=== PATIENT | female | born 1960 | race Caucasian/White ===

== ENCOUNTER 2022-11-21 17:57 | Emergency (ER) | payer MEDICAID, OTHER ==
[~2022-11-21] VITALS: Ht 160 cm; Wt 86.4 kg
[2022-11-21 18:53] LABS: Basophils # (auto) 0.1 10 ^3/uL (0-0.2); Eosinophils # (auto) 0.1 10 ^3/uL (0-0.8); Eosinophils % (auto) 1.6 % (0.0-7.0); Hematocrit 37.5 % (36.0-46.0); Hemoglobin 12.6 g/dL (12.2-16.2); Lymphocytes # (auto) 2.5 10 ^3/uL (0.4-5.4); Mean Corpuscular Hemoglobin 30.1 pg (28.0-32.0); Mean Corpuscular Hgb Conc. 33.6 g/dL (32.0-36.0); Mean Corpuscular Volume 89.6 fL (80.0-100.0); Monocytes # (auto) 0.5 10 ^3/uL (0-1.3); Monocytes % (auto) 7.1 % (0.0-12.0); Neutrophils # (auto) 4.1 10 ^3/uL (1.6-8.6); Neutrophils % (auto) 56.3 % (37.0-80.0); Nucleated Red Blood Cells % 0.1 %; Red Blood Cells 4.18 10^6/uL (4.0-5.20); Red Cell Distribution Width 12.3 % (11.8-14.3); White Blood Cell 7.3 10^3/uL (4.4-10.8)
[2022-11-21 19:11] LABS: Alanine Aminotransferase 13 U/L (7-40); Albumin 4.6 g/dL (3.2-4.8); Alkaline Phosphatase 83 U/L (46-116); Anion Gap 9 (5-15); Aspartate Aminotransferase 21 U/L (13-40); BUN/Creatinine Ratio 18.5 (10.0-20.0); Bilirubin, Total 0.4 mg/dL (0.2-1.0); Blood Urea Nitrogen 20 mg/dL (9-23); Calcium 9.5 mg/dL (8.7-10.4); Carbon Dioxide 27 mmol/L (20-30); Chloride 105 mmol/L (98-107); Glucose 128 mg/dL (74-106); Potassium 3.9 mmol/L (3.5-5.1); Sodium 141 mmol/L (136-145); Total Protein 7.3 g/dL (5.7-8.2)
[2022-11-22 00:36] VITALS: BP 114/69; PULSE 86; RESP 20; O2SAT 97
== END 2022-11-22 00:39 | disposition home or self-care (01) ==
LOC: ER 17:57 → EDBD 17:57 → ER 11-22 00:39
DX: R07.89 Other chest pain (principal); I10 Essential (primary) hypertension; K21.9 Gastro-esophageal reflux disease without esophagitis; Z88.8 Allergy status to other drugs, medicaments and biological substances; Z88.2 Allergy status to sulfonamides
CPT/HCPCS: 36415; 71045; 80053; 84484; 85025; 93005

== ENCOUNTER 2024-08-25 05:28 | Inpatient (IN) | payer MEDICAID ==
[~2024-08-25] VITALS: Ht 162.6 cm; Wt 75.3 kg
[2024-08-25 06:11] LABS: Hematocrit 33.5 % (36.0-46.0); Hemoglobin 11.5 g/dL (12.2-16.2); Mean Corpuscular Hemoglobin 30.0 pg (28.0-32.0); Mean Corpuscular Volume 87.1 fL (80.0-100.0); Nucleated Red Blood Cells % 0.0 %
[2024-08-25 06:18] LABS: Sodium 139 mmol/L (136-145)
[2024-08-25 06:19] LABS: Anion Gap 10 (5-15); Carbon Dioxide 22 mmol/L (20-31)
[2024-08-25 06:20] LABS: Calcium 9.4 mg/dL (8.7-10.4)
--- NOTE | 2024-08-25 06:20 | DVH ---
CHEST RADIOGRAPH Indication: sob Technique: Single frontal view of the chest was obtained Comparison: XY CHEST PORTABLE on DOS: 11/21/22 FINDINGS: Lines and Tubes: None Lungs: Bilateral interstitial prominence. Bibasilar opacities. Pleura: No effusion. No pneumothorax. Cardiomediastinal contours: Unremarkable Bones: No acute osseous abnormality. IMPRESSION: 1. Pulmonary venous congestion and bibasilar airspace disease which may represent atelectasis or pneu monia.
[2024-08-25 06:24] LABS: BUN/Creatinine Ratio 12.0 (10.0-20.0)
[2024-08-25 06:25] LABS: Blood Urea Nitrogen 9 mg/dL (9-23); Chloride 107 mmol/L (98-107); Glucose 176 mg/dL (74-106); Potassium 3.5 mmol/L (3.5-5.1)
[2024-08-25] MEDS: ALBUTEROL SULF 2.5 MG/0.5ML(0.5%) NEB SOLN NEB ONE (07:00)
[2024-08-25] MEDS: IPRATROPIUM BROM 0.5 MG/2.5ML INH SOL NEB ONE (07:00)
--- NOTE | 2024-08-25 07:08 | ED.PDOC ---
SOB-HPI HPI Comments 64 y/o F, with PMHx of COPD not on home O2, HTN, HLD, and CAD with stents who presents to the ED for CC of shortness of breath and chest pain for the past 4 days. Patient states, she has been experiencing shortness of breath with associated symptoms of nausea and a productive cough for x3days. Patient reports, white phlegm with cough. Patient endorses, shortness of breath to worsen while lying down. Chest pain is constant, dull nonexertional, nonradiat ing, not associated with palpitations or diaphoresis. She last had a stent placed 1 year ago but states the chest pain does not feel similar to this. Upon arrival to the ED, patient saturating at 94% on R.A. Patient denies fever, nasal congestion, sore-throat, or leg swelling. No other symptoms or modifying factors present at this time. Chief Complaint: Shortness of Breath Time Seen by MD: 07:00 Primary Care Provider: TORIE Reviewed notes: Nurses Notes, Medications, Allergies Information Source: Patient Mode of Arrival: Wheelchair Severity: Moderate Timing: Days Duration: Since onset Context: At Rest PE Risk Factors: None History of: COPD Prehospital treatment: None Modifying Factors: Laying flat Associated Signs and Symptoms: Cough If cough with SOB: Non-Productive Past Medical History PAST MEDICAL HISTORY: CAD, COPD, GERD, High Lipids, HTN Surgical History: Denies all surgeries [employer] History: No Pertinent [employer] History Family History Family History: Unknown Social History Smoker: Non-Smoker Alcohol: Denies ETOH Use Drugs: Denies Drug Use Lives In: Home Constitutional: denies: chills, diaphoresis, fatigue, fever, malaise, sweats, weakness, others EENTM: denies: blurred vision, double vision, ear bleeding, ear discharge, ear drainage, ear pain, ear ringing, eye pain, eye redness, hearing loss, mouth pain, mouth swelling, nasal discharge, nose bleeding, nose congestion, nose pain, photophobia, tearing, throat pain, throat swelling, voice changes, others Respiratory: reports: cough, shortness of breath; denies: hemoptysis, orthopnea, SOB at rest, SOB with excertion, stridor, wheezing, others Cardiovascular: reports: chest pain; denies: dizzy spells, diaphoresis, Dyspnea on exertion, edema, irregular heart beat, left arm pain, lightheadedness, palpitations, PND, syncope, others Gastrointestinal: reports: nausea; denies: abdomen distended, abdominal pain, blood streaked bowels, constipated, diarrhea, dysphagia, difficulty swallowing, hematemesis, melena, poor appetite, poor fluid intake, rectal bleeding, rectal pain, vomiting, others Genitourinary: denies: abnormal vagina bleeding, burning, dyspareunia, dysuria, flank pain, frequency, hematuria, incontinence, pain, , vagina discharge, urgency, others Neurological: denies: dizziness, fainting, headache, left sided numbness, left sided weakness, numbness, paresthesia, pre-existing deficit, right sided numbness, right sided weakness, seizure, speech problems, tingling, tremors, weakness, others Musculoskeletal: denies: back pain, gout, joint pain, joint swelling, muscle pain, muscle stiffness, neck pain, others Integumetry: denies: bruises, change in color, change in hair/nails, dryness, laceration, lesions, lumps, rash, wounds, others Allergic/Immunocompromised: denies: Difficulty Healing, Frequent Infections, Hives, Itching, others Hematologic/Lymphatic: denies: anemia, blood clots, easy bleeding, easy bruising, swollen glands, others Endocrine: denies: excessive hunger, excessive sweating, excessive thirst, excessive urination, flushing, intolerance to cold, intolerance to heat, unexplained weight gain, unexplained weight loss, others Psychiatric: denies: anxiety, bipolar disorder, depression, hopeless, panic disorder, schizophrenia, sleepless, suicidal, others All Other Systems: Reviewed and Negative Physical Exam General Appearance: No Apparent Distress, Normal HEENT: Normal ENT Inspection, Pharynx Normal, TMs Normal Neck: Full Range of Motion, Non-Tender, Normal, Normal Inspection Respiratory: Chest Non-Tender, Expiration, No Accessory Muscle Use, No R espiratory Distress, Normal Breath Sounds, Wheezing Cardiovascular: No Edema, No JVD, No Murmur, No Gallop, Normal Peripheral Pulses, Regular Rate/Rhythm Breast Exam: Deferred Gastrointestinal: No Organomegaly, Non Tender, No Pulsatile Mass, Normal Bowel Sounds, Soft Genitalia: Deferred Pelvic: Deferred Rectal: Deferred Extremities: No calf tenderness, Normal capillary refill, Normal inspection, Normal range of motion, Non-tender, No pedal edema Neurologic: Alert, 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 Was a procedure done?: No Differential Dx Differential Diagnosis: Asthma, Bronchitis, CHF, COPD, Pneumonia, Respiratory Distress, Sinusitis, Pharyngitis, URI X-Ray, Labs, Meds, VS Vital Signs Date Time Temp Pulse Resp B/P (MAP) Pulse Ox O2 Delivery O2 Flow Rate FiO2 08/25/24 07:47 98.2 83 16 136/92 (107) 96 98.2 08/25/24 06:18 87 08/25/24 05:40 99.0 96 22 144/97 (113) 94 99.0 Lab Test 08/25/24 07:18 08/25/24 05:54 Range/Units Troponin I High Sensitivity 7 9 </=34 ng/L White Blood Count 12.0 H 4.4-10.8 10^3/uL Red Blood Count 3.84 L 4.0-5.20 10^6/uL Hemoglobin 11.5 L 12.2-16.2 g/dL Hematocrit 33.5 L 36.0-46.0 % Mean Corpuscular Volume 87.1 80.0-100.0 fL Mean Corpuscular Hemoglobin 30.0 28.0-32.0 pg Mean Corpuscular Hemoglobin Concent 34.4 32.0-36.0 g/dL Red Cell Distribution Width 13.8 11.8-14.3 % Platelet Count 306 140-450 10^3/uL Mean Platelet Volume 8.4 6.9-10.8 fL Neutrophils (%) (Auto) 87.1 H 37.0-80.0 % Lymphocytes (%) (Auto) 5.4 L 10.0-50.0 % Monocytes (%) (Auto) 6.7 0.0-12.0 % Eosinophils (%) (Auto) 0.2 0.0-7.0 % Basophils (%) (Auto) 0.6 0.0-2.0 % Neutrophils # (Auto) 10.5 H 1.6-8.6 10 ^3/uL Lymphocytes # (Auto) 0.6 0.4-5.4 10 ^3/uL Monocytes # (Auto) 0.8 0-1.3 10 ^3/uL Eosinophils # (Auto) 0 0-0.8 10 ^3/uL Basophils # (Auto) 0.1 0-0.2 10 ^3/uL Nucleated Red Blood Cells 0.0 % Sodium Level 139 136-145 mmol/L Potassium Level 3.5 3.5-5.1 mmol/L Chloride Level 107 98-107 mmol/L Carbon Dioxide Level 22 20-31 mmol/L Anion Gap 10 5-15 Blood Urea Nitrogen 9 9-23 mg/dL Creatinine 0.75 0.550-1.02 mg/dL Glomerular Filtration Rate Calc 88 >90 mL/min BUN/Creatinine Ratio 12.0 10.0-20.0 Serum Glucose 176 H 74-106 mg/dL Calcium Level 9.4 8.7-10.4 mg/dL B-Type Natriuretic Peptide 779.19 0-100 pg/mL [place] [address] Ph: [phone] DIAGNOSTIC IMAGING Diagnostic Imaging Report : [id number] Signed PATIENT: BARBARA FOLEY ACCT: [id number] UNIT: [id number] : 1960 LOC: ER ROOM / BED: / AGE / SEX: 64 / F ADM STATUS: REG ER SERVICE ORDERING PHYSICIAN: JASVIR SYLVESTER MD PROCEDURE(s): CXR1 - CHEST XRAY 1 VIEW REASON: sob ORDER NUMBER(s): [id number], ACCESSION NUMBER(s): [id number] CHEST RADIOGRAPH Indication: sob Technique: Single frontal view of the chest was obtained Comparison: XY CHEST PORTABLE on DOS: 11/21/22 FINDINGS: Lines and Tubes: None Lungs: Bilateral interstitial prominence. Bibasilar opacities. Pleura: No effusion. No pneumothorax. Cardiomediastinal contours: Unremarkable Bones: No acute osseous abnormality. IMPRESSION: 1. Pulmonary venous congestion and bibasilar airspace disease which may represent atelectasis or pneumonia. ATED BY: ELISA CARLOS MD DICTATED DATE/TIME: 08/25/24616 SIGNED BY: ELISA CARLOS MD SIGNED DATE/TIME: 08/25/2417 CC: [address] [address] Ph: [phone] DIAGNOSTIC IMAGING Diagnostic Imaging Report : [id number] Signed PATIENT: BARBARA FOLEY ACCT: [id number] UNIT: [id number] : 1960 LOC: ER ROOM / BED: / AGE / SEX: 64 / F ADM STATUS: REG ER SERVICE 3 ORDERING PHYSICIAN: SHAUN JOLLY MD PROCEDURE(s): CXRP - CHEST PORTABLE REASON: chest pain ORDER NUMBER(s): [id number], ACCESSION NUMBER(s): [id number] CHEST RADIOGRAPH Indication: chest pain Technique: Single frontal view of the chest was obtained Comparison: XY CHEST XRAY 1 VIEW on DOS: 08/25/24 FINDINGS: Lines and Tubes: None Lungs: Bilateral interstitial prominence. No focal consolidation. Pleura: No effusion. No pneumothorax. Cardiomediastinal contours: Unremarkable Bones: No acute osseous abnormality. IMPRESSION: 1. Pulmonary vascular congestion. ATED BY: ELISA CARLOS MD DICTATED DATE/TIME: 08/25/24724 SIGNED BY: ELISA CARLOS MD SIGNED DATE/TIME: 08/25/24724 CC: Time of 1ST Reevaluation: 07:30 Reevaluation 1ST: Unchanged Time of 2ND Reevaluation: 08:02 Reevaluation 2ND: Improved (Lungs now clear to auscultation, however still complaining of chest pain and shortness of breath. Found to have volume overload on CXR and elevated BNP so given IV lasix and will admit for new onset CHF.) Patient Education/Counseling: Diagnosis, Treatment Family Education/Counseling: No Family Present SEPSIS Sepsis Screen Date sepsis recognized/suspect: Aug 25, 2024 Time Sepsis recognized/suspect: 0532 Recent Procedure: No On Antibiotic Therapy: No Respiratory Rate >20: Yes Heart Rate >90: Yes Temp<36 C (96.8 F) or >38.3 C: No SBP <90 or MAP <65 mmHG: No New Acute Mental Status Change: No Is the patient on CPAP, BIPAP,: No Physician Orders Chest Xray 1 View (08/25/24 05:39) Troponin-I Hs (08/25/24 08:39) Electrocardigram (08/25/24 06:39) Electrocardigram (08/25/24 08:39) Chest Portable (08/25/24 06:54) Electrocardigram (08/25/24 07:54) Electrocardigram (08/25/24 09:54) Vital Signs Date Time Temp Pulse Resp B/P (MAP) Pulse Ox O2 Delivery O2 Flow Rate FiO2 08/25/24 07:47 98.2 83 16 136/92 (107) 96 98.2 08/25/24 06:18 87 08/25/24 05:40 99.0 96 22 144/97 (113) 94 99.0 Laboratory Tests Test 08/25/24 05:54 White Blood Count 12.0 10^3/uL (4.4-10.8) H Departure 1 Departure Time of Disposition: 07:48 (Patient presenting with CP and SOB with wheezing on exam. Will check labs to evaluate for anemia, infection, electrolyte abnor mality, renal failure, etc. CXR to evalaute for PNA, pneumothorax, volume overload. EKG and troponin to evaluate for ACS or arrhythmia. Albuterol, ipratropium, methylprednisone to treat for COPD exacerbation.On reassessment, patient's BNP is elevated with volume overload on CXR, so given IV lasix and will admit for further cardiac workup.) Impression: Primary Impression: Acute systolic heart failure Additional Impressions: Acute and chronic respiratory failure Acute chest pain Acute dyspnea Disposition: ADMITTED INPATIENT Admit to: Med Surg Condition: Guarded Critical Care Note Critical Care Time?: Yes (35 min-critical care time only) Critical care comment: new onset CHF Stability Stability form required: No Heart Score Heart Score: Heart Score Response (Comments) Value History Moderate Suspicious 1 EKG Normal 0 Age >65 2 Risk Factors >3 or Hx ASHD 2 Troponin 1-2 x's Normal limit 1 Total 6 I personally scribed for SHAUN JOLLY MD ([email or web address]) on 08/25/24 at 07:08. Electronically submitted by Ying Mathews ([email or web address]). I personally scribed for SHAUN JOLLY MD ([email or web address]) on 08/25/24 at 07:12. Electronically submitted by Ying Mathews ([email or web address]). I personally scribed for SHAUN JOLLY MD ([email or web address]) on 08/25/24 at 07:38. El ectronically submitted by Ying Mathews ([email or web address]). I personally scribed for SHAUN JOLLY MD ([email or web address]) on 08/25/24 at 07:38. Electro nically submitted by Ying Mathews ([email or web address]). SHAUN JOLLY MD Aug 25, 2024 07:08
--- NOTE | 2024-08-25 07:28 | DVH ---
CHEST RADIOGRAPH Indication: chest pain Technique: Single frontal view of the chest was obtained Comparison: XY CHEST XRAY 1 VIEW on DOS: 08/25/24 FINDINGS: Lines and Tubes: None Lungs: Bilateral interstitial prominence. No focal consolidation. Pleura: No effusion. No pneumothorax. Cardiomediastinal contours: Unremarkable Bones: No acute osseous abnormality. IMPRESSION: 1. Pulmonary vascular congestion.
--- NOTE | 2024-08-25 08:01 | ECG ---
[facility] Test Date: 2024-08-25 Test Time: 05:44:01 Pat Name: BARBARA FOLEY Department: ED Room: [facility] Gender: F [employer]: : 1960 Requested By: JASVIR SYLVESTER Order Number: [id number] Reading MD: Swapnil Pino Measurements Intervals [place] Rate: 87 P: 53 KS: 148 QRS: 44 QRSD: 86 T: 57 QT: 408 QTc: 491 Interpretive Statements Sinus rhythm Consider left atrial enlargement Borderline prolonged QT interval Electronically Signed On 08-27-2024 19:00:20 PDT by Swapnil Pino Please click the below link to view image of tracing.
[2024-08-25] MEDS: FUROSEMIDE 20 MG/2 ML VIAL IV ONE (08:58)
[2024-08-25] MEDS: methylPREDNISolone SOD SUCC 125 MG/2 ML VL IV ONE (08:58)
[2024-08-25] MEDS ORDERED: ONDANSETRON HCL 4 MG/2 ML VIAL IV PRN (10:45)
[2024-08-25] MEDS ORDERED: HYDROcodone-ACET 5/325MG TAB PO PRN (10:45)
[2024-08-25] MEDS ORDERED: ACETAMINOPHEN 325 MG TAB PO PRN (10:45)
[2024-08-25] MEDS ORDERED: DOCUSATE SOD 100 MG CAP PO PRN (10:45)
[2024-08-25] MEDS ORDERED: RANO500T3 PO (10:47)
[2024-08-25] MEDS ORDERED: PRAV20TA3 PO (10:47)
[2024-08-25] MEDS ORDERED: TRAZ-228 PO (10:47)
[2024-08-25] MEDS ORDERED: OMEP1CAP70 PO (10:47)
[2024-08-25] MEDS ORDERED: ISO60SRT PO (10:47)
[2024-08-25] MEDS ORDERED: ATEN25TA PO (10:47)
[2024-08-25] MEDS ORDERED: HYDRX10T PO (10:47)
[2024-08-25] MEDS ORDERED: ASPI81CH59 PO (10:47)
[2024-08-25] MEDS ORDERED: EZET-10 PO (10:47)
[2024-08-25] MEDS ORDERED: LOSA-535 PO (10:47)
[2024-08-25] MEDS ORDERED: SERT25TA28 PO (10:47)
[2024-08-25] MEDS ORDERED: TICA90TA PO (10:47)
--- NOTE | 2024-08-25 11:00 | DVHHP2 ---
History of Present Illness Reason for Visit: Shortness of breath History of Present Illness Santa Montes is a 64-year-old female with past medical history of COPD, GERD, hypertension, hyperlipidemia, and coronary artery disease, who came to the hospital for shortness of breath. Patient states she has been experiencing shortness of breath with an associated cough and pleural pain for about 4 days. Her symptoms were worsening prompting her to come to the hospital. She does not use home oxygen, and states she knows she has COPD, but has never had an exacerbation. Cardiovascular: CAD, HTN, hyperipidemia Pulmonary: COPD GI: GERD Past Surgical History: None Smoke: No ALCOHOL: none Drugs: None Lives: with Family Domestic Violence: Neg Review of Systems Constitutional: No: Fever, Chills, Sweats, Weakness, Malaise, Other Eyes: No: Pain, Vision change, Conjunctivae inflammation, Eyelid inflammation, Other, Redness ENT: No: Ear pain, Ear discharge, Nose pain, Nose discharge, Nose congestion, Mouth pain, Mouth swelling, Throat pain, Throat swelling, Other Respiratory: Cough, Shortness of breath, SOB with excertion, Wheezing, Pleuritic Pain, Sputum; No: Dry, Hemoptysis, Wheezing, Other Cardiovascular: No: Chest Pain, Palpitations, Orthopnea, Paroxysmal Noc. Dyspnea, Edema, Lt Headedness, Other Gastrointestinal: No: Nausea, Vomiting, Abdominal Pain, Diarrhea, Constipation, Melena, Hematochezia, Other Genitourinary: No Dysuria, No Frequency, No Incontinence, No Hematuria, No Retention, No Other Musculoskeletal: No: other, neck pain, shoulder pain, arm pain, back pain, hand pain, leg pain, foot pain Skin: No: Rash, Lesions, Jaundice, Bruising, Other Neurological: No: Weakness, Numbness, Incoordination, Change in speech, Confusion, Seizures, Other Allergies: Coded Allergies: Enalapril (Verified Allergy, Unknown, 11/21/22) Lisinopril (Verified Allergy, Unknown, 11/21/22) Uncoded Allergies: SULFA (Allergy, Unknown, 11/21/22) Medications Current Medications Medications Dose Ordered Sig/Margarita Route Start Time Stop Time Status Last Admin Dose Admin Sodium Chloride 10 ml Q8HR IV 08/25/24 14:00 UNV Acetaminophen/ Hydrocodone Bitart 1 tab Q4HP PRN PO 08/25/24 10:45 UNV Ondansetron HCl 4 mg Q4HP PRN IV 08/25/24 10:45 UNV Docusate Sodium 100 mg BIDPRN PRN PO 08/25/24 10:45 UNV Acetaminophen 650 mg Q6HP PRN PO 08/25/24 10:45 UNV Albuterol 2.5 mg Q6HWA [facility] 08/25/24 12:00 UNV Ipratropium [place] 0.5 mg Q6HWA [facility] 08/25/24 12:00 UNV Methylprednisolone Sodium Succinate 40 mg BID IV 08/25/24 22:00 UNV Exam Vital Signs Vital Signs Date Time Temp Pulse Resp B/P (MAP) Pulse Ox O2 Delivery O2 Flow Rate FiO2 08/25/24 08:58 136/92 08/25/24 07:47 98.2 83 16 96 98.2 General Appearance: Alert, Oriented X3, Cooperative, mild distress HEENT: Atraumatic, PERRLA, Mucous membr. moist/pink Respiratory: Other (Diminished breath sounds, wheezing) Cardiovascular: Regular rate, Normal S1, Normal S2, No murmurs Abdominal: Normal bowel sounds, Soft, No tenderness, No hepatospenomegaly Extremities: No clubbing, No cyanosis, No edema, Normal pulses, No tenderness/swelling Skin: No rashes, No breakdown, No significant lesion Neuro: Normal gait, Normal speech, Strength at 5/5 X4 ext Psych/Mental Status: Mental status NL, Mood NL Labs/Xrays Labs Test 08/25/24 09:14 08/25/24 05:54 Range/Units Troponin I High Sensitivity 8 </=34 ng/L White Blood Count 12.0 H 4.4-10.8 10^3/uL Red Blood Count 3.84 L 4.0-5.20 10^6/uL Hemoglobin 11.5 L 12.2-16.2 g/dL Hematocrit 33.5 L 36.0-46.0 % Mean Corpuscular Volume 87.1 80.0-100.0 fL Mean Corpuscular Hemoglobin 30.0 28.0-32.0 pg Mean Corpuscular Hemoglobin Concent 34.4 32.0-36.0 g/dL Red Cell Distribution Width 13.8 11.8-14.3 % Platelet Count 306 140-450 10^3/uL Mean Platelet Volume 8.4 6.9-10.8 fL Neutrophils (%) (Auto) 87.1 H 37.0-80.0 % Lymphocytes (%) (Auto) 5.4 L 10.0-50.0 % Monocytes (%) (Auto) 6.7 0.0-12.0 % Eosinophils (%) (Auto) 0.2 0.0-7.0 % Basophils (%) (Auto) 0.6 0.0-2.0 % Neutrophils # (Auto) 10.5 H 1.6-8.6 10 ^3/uL Lymphocytes # (Auto) 0.6 0.4-5.4 10 ^3/uL Monocytes # (Auto) 0.8 0-1.3 10 ^3/uL Eosinophils # (Auto) 0 0-0.8 10 ^3/uL Basophils # (Auto) 0.1 0-0.2 10 ^3/uL Nucleated Red Blood Cells 0.0 % Sodium Level 139 136-145 mmol/L Potassium Level 3.5 3.5-5.1 mmol/L Chloride Level 107 98-107 mmol/L Carbon Dioxide Level 22 20-31 mmol/L Anion Gap 10 5-15 Blood Urea Nitrogen 9 9-23 mg/dL Creatinine 0.75 0.550-1.02 mg/dL Glomerular Filtration Rate Calc 88 >90 mL/min BUN/Creatinine Ratio 12.0 10.0-20.0 Serum Glucose 176 H 74-106 mg/dL Calcium Level 9.4 8.7-10.4 mg/dL B-Type Natriuretic Peptide 779.19 0-100 pg/mL CHEST RADIOGRAPH FINDINGS: Lines and Tubes: None Lungs: Bilateral interstitial prominence. No focal consolidation. Pleura: No effusion. No pneumothorax. Cardiomediastinal contours: Unremarkable Bones: No acute osseous abnormality. IMPRESSION: 1. Pulmonary vascular congestion. Assessment/Plan Assessment/Plan Assessment: Acute dyspnea, COPD exacerbation, Elevated BNP, Hyperglycemia, Hypertension, Hyperlipidemia, GERD, Plan: Admit to Med-Surg, Breathing treatments, IV steroids, A1c, IV Lasix, Manage/Monitor electrolytes closely, Home medications reconciled, Plan discussed with: Patient My Orders Orders - RUPERTO ROBIN Procedure Category Date Status Time Admit ADMIT 08/25/24 Transmitted 10:43 Code Status CODE 08/25/24 Transmitted 10:43 Sodium Chloride Lock PHA 08/25/24 Logged (Saline Lock Ns) 14:00 Hydrocodone-Acet PHA 08/25/24 Logged 5/325mg Tab (Crystal 10:45 Ondansetron Hcl PHA 08/25/24 Logged (Zofran) 10:45 Docusate Sodium PHA 08/25/24 Logged Capsule (Colace 10:45 Complete Blood Count LAB 08/26/24 Verified 04:00 Comprehensive LAB 08/26/24 Verified Metabolic Panel 04:00 Cardiac DIET 08/25/24 Transmitted Diet-2gna,Lofat,Lochol Lunch Condition: Serious DEVIKA 08/25/24 In Process 10:43 Acetaminophen Tablet PHA 08/25/24 Logged (Tylenol Tablet) 10:45 Albuterol Medneb PHA 08/25/24 Logged (Ventolin Medneb) 12:00 Ipratropium Medneb PHA 08/25/24 Logged (Atrovent Medneb) 12:00 Methylprednisolone PHA 08/25/24 Logged Sod Succ (Solu Medrol 22:00 Atenolol Tablet PHA 08/25/24 Transmitted (Tenormin Tablet) 22:00 Ezetimibe (Zetia) PHA 08/26/24 Transmitted 10:00 Hydroxyzine Oral PHA 08/25/24 Transmitted (Vistaril Oral) 11:00 Isosorbide PHA 08/26/24 Transmitted Mononitrate Tablet 10:00 Pravastatin Sodium PHA 08/26/24 Transmitted Tablet (Pravachol Tab 10:00 Ranolazine (Ranexa Er) PHA 08/25/24 Transmitted 22:00 Ticagrelor (Brilinta) PHA 08/25/24 Transmitted 22:00 (Nf) Aspirin (Aspirin PHA 08/26/24 Transmitted Low Dose) 10:00 (Nf) Losartan PHA 08/26/24 Transmitted Potassium 10:00 (Nf) Omeprazole PHA 08/26/24 Transmitted (Omeprazole Dr) 10:00 (Nf) Sertraline Hcl PHA 08/25/24 Transmitted 22:00 (Nf) Trazodone Hcl PHA 08/25/24 Transmitted 22:00 Date of Service: Aug 25, 2024 Billing Provider: RUPERTO ROBIN Common Visit Codes: [id number] INP/OBS CARE (MOD) RUPERTO ROBIN [facility] Aug 25, 2024 11:00
[2024-08-25] MEDS: IPRATROPIUM BROM 0.5 MG/2.5ML INH SOL NEB SCH (12:00)
[2024-08-25] MEDS: ALBUTEROL SULF 2.5 MG/0.5ML(0.5%) NEB SOLN NEB SCH (12:00)
[2024-08-25 15:30] VITALS: PULSE 80; RESP 20; O2SAT 96
[2024-08-25 16:20] VITALS: PULSE 80; RESP 20; O2SAT 96
[2024-08-25] MEDS: ALBUTEROL SULF 2.5 MG/0.5ML(0.5%) NEB SOLN ONE (16:30)
[2024-08-25] MEDS: IPRATROPIUM BROM 0.5 MG/2.5ML INH SOL ONE (16:30)
[2024-08-25] MEDS: SODIUM CHLOR 0.9% PF (SALINE LOCK) 10ML VIAL/SYR IV SCH (16:40)
[2024-08-25 18:53] VITALS: PULSE 82; RESP 20; O2SAT 96
[2024-08-25 19:03] VITALS: PULSE 82; RESP 18; O2SAT 99
[2024-08-25] MEDS ORDERED: PATIENTS OWN MEDICATION (Sertraline Hcl 1 TAB) PO SCH (22:00)
[2024-08-25] MEDS ORDERED: PATIENTS OWN MEDICATION (Trazodone Hcl 1 TAB) PO SCH (22:00)
[2024-08-25] MEDS: SERTRALINE HCL 50 MG TAB PO SCH (23:12)
[2024-08-25] MEDS: methylPREDNISolone SOD SUCC 40 MG/ML VL IV SCH (23:12)
[2024-08-25] MEDS: RANOLAZINE ER 500 MG TAB PO SCH (23:13)
[2024-08-25] MEDS: TICAGRELOR 90 MG TAB PO SCH (23:13)
[2024-08-25] MEDS: ATENOLOL 25 MG TAB PO SCH (23:14)
[2024-08-26] VITALS (12 sets, daily range): BP systolic 105–148; BP diastolic 62–83; PULSE 63–96; RESP 17–20; TEMP 97.1–98.7; O2SAT 93–99
[2024-08-26] MEDS: FUROSEMIDE 20 MG/2 ML VIAL IV SCH (09:28)
[2024-08-26] MEDS: ISOSORBIDE MONONITRATE ER 60 MG TAB PO SCH (09:29)
[2024-08-26] MEDS: EZETIMIBE 10 MG TAB PO SCH (09:30)
[2024-08-26] MEDS: LOSARTAN POTASSIUM 50 MG TAB PO SCH (09:30)
[2024-08-26] MEDS: PANTOPRAZOLE 40 MG TAB PO SCH (09:32)
[2024-08-26] MEDS ORDERED: PATIENTS OWN MEDICATION (Losartan Potassium 1 TAB) PO SCH (10:00)
[2024-08-26] MEDS ORDERED: PATIENTS OWN MEDICATION (Omeprazole (Omeprazole Dr) 1 CAP) PO SCH (10:00)
[2024-08-26] MEDS: PRAVASTATIN SODIUM 20 MG TAB PO SCH (10:00)
[2024-08-26] MEDS ORDERED: PATIENTS OWN MEDICATION (Aspirin (Aspirin Low Dose) 1 TAB) PO SCH (10:00)
[2024-08-26 13:41] LABS: Hematocrit 34.1 % (36.0-46.0); Hemoglobin 11.5 g/dL (12.2-16.2); Mean Corpuscular Hemoglobin 30.0 pg (28.0-32.0); Mean Corpuscular Volume 89.4 fL (80.0-100.0); Nucleated Red Blood Cells % 0.0 %
[2024-08-26 13:53] LABS: Alanine Aminotransferase 11 U/L (7-40); Albumin 4.4 g/dL (3.2-4.8); Alkaline Phosphatase 72 U/L (46-116); Anion Gap 13 (5-15); BUN/Creatinine Ratio 26.4 (10.0-20.0); Blood Urea Nitrogen 23 mg/dL (9-23); Carbon Dioxide 23 mmol/L (20-31); Chloride 102 mmol/L (98-107); Potassium 3.8 mmol/L (3.5-5.1); Sodium 138 mmol/L (136-145); Total Protein 6.6 g/dL (5.7-8.2)
[2024-08-26 13:54] LABS: Bilirubin, Total 0.6 mg/dL (0.2-1.0); Calcium 10.6 mg/dL (8.7-10.4); Glucose 272 mg/dL (74-106)
--- NOTE | 2024-08-26 14:21 | DVHPN2 ---
Reviewed: Care Plan, H&P, Labs, Medications, Previous Orders, Radiology Changes from previous H/P or p: No Changes Eyes: No Pain, No Vision change, No Conjunctivae inflammation, No Eyelid inflammation, No Other, No Redness ENT: No Ear pain, No Ear discharge, No Nose pain, No Nose discharge, No Nose congestion, No Mouth pain, No Mouth swelling, No Throat pain, No Throat swelling, No Other Cardiovascular: No Chest Pain, No Palpitations, No Orthopnea, No Paroxysmal Noc. Dyspnea, No Edema, No Lt Headedness, No Other Respiratory: Cough; No Dry; Shortness of breath, SOB with excertion, Wheezing; No Hemoptysis; Pleuritic Pain, Sputum; No Other Gastrointestinal: No Nausea, No Vomiting, No Abdominal Pain, No Diarrhea, No Constipation, No Melena, No Hematochezia, No Other Genitourinary: No Dysuria, No Frequency, No Incontinence, No Hematuria, No Retention, No Other Musculoskeletal: No other, No neck pain, No shoulder pain, No arm pain, No back pain, No hand pain, No leg pain, No foot pain Skin: No Rash, No Lesions, No Jaundice, No Bruising, No Other Objective Vitals Vital Signs Date Time Temp Pulse Resp B/P (MAP) Pulse Ox O2 Delivery O2 Flow Rate FiO2 08/26/24 13:00 97.1 76 17 116/68 (84) 95 97.1 08/26/24 12:32 Nasal Cannula 3.0 08/26/24 12:32 32 Intake/Output Intake and Output 08/26/24 07:00 Intake Total 420 ml Balance 420 ml Intake Oral 420 ml # Voids 2 Medications Current Medications Medications Dose Ordered Sig/Margarita Route Start Time Stop Time Status Last Admin Dose Admin Sodium Chloride 10 ml Q8HR IV 08/25/24 14:00 08/26/24 05:55 10 ML Acetaminophen/ Hydrocodone Bitart 1 tab Q4HP PRN PO 08/25/24 10:45 Ondansetron HCl 4 mg Q4HP PRN IV 08/25/24 10:45 Docusate Sodium 100 mg BIDPRN PRN PO 08/25/24 10:45 Acetaminophen 650 mg Q6HP PRN PO 08/25/24 10:45 Albuterol 2.5 mg Q6HWA NEB 08/25/24 12:00 08/26/24 12:32 2.5 MG Ipratropium [place] 0.5 mg Q6HWA NEB 08/25/24 12:00 08/26/24 12:32 0.5 MG Methylprednisolone Sodium Succinate 40 mg BID IV 08/25/24 22:00 08/26/24 09:27 40 MG Atenolol 25 mg BID PO 08/25/24 22:00 08/26/24 09:33 25 MG EZETIMIBE 10 mg DAILY PO 08/26/24 10:00 08/26/24 09:30 10 MG Hydroxyzine HCl 10 mg TIDP PRN PO 08/25/24 11:00 Isosorbide Mononitrate 60 mg DAILY PO 08/26/24 10:00 08/26/24 09:29 60 MG Pravastatin Sodium 20 mg DAILY PO 08/26/24 10:00 Ranolazine 500 mg BID PO 08/25/24 22:00 08/26/24 09:33 500 MG Ticagrelor 90 mg BID PO 08/25/24 22:00 08/26/24 09:33 90 MG Patient Own Medication 1 tab DAILY PO 08/26/24 10:00 UNV Patient Own Medication 1 tab DAILY PO 08/26/24 10:00 UNV Patient Own Medication 1 cap DAILY PO 08/26/24 10:00 UNV Patient Own Medication 1 tab BID PO 08/25/24 22:00 UNV Patient Own Medication 1 tab HS PO 08/25/24 22:00 UNV Aspirin 81 mg DAILY PO 08/26/24 10:00 08/26/24 09:33 81 MG Losartan Potassium 100 mg DAILY PO 08/26/24 10:00 08/26/24 09:30 100 MG Pantoprazole Sodium 40 mg DAILY PO 08/26/24 10:00 08/26/24 09:32 40 MG Sertraline HCl 25 mg BID PO 08/25/24 22:00 08/26/24 09:36 25 MG Trazodone HCl 100 mg HS PO 08/25/24 22:00 08/25/24 23:12 100 MG Furosemide 20 mg DAILY IV 08/26/24 10:00 08/26/24 09:28 20 MG Albuterol 2.5 mg Q4HPRN PRN NEB 08/25/24 16:00 Ipratropium [place] 0.5 mg Q4HPRN PRN NEB 08/25/24 16:00 Laboratory Results Laboratory Tests 08/26/24 13:15 Chemistry Test 08/26/24 13:15 Albumin 4.4 g/dL (3.2-4.8) Calcium Level 10.6 mg/dL (8.7-10.4) H Total Protein 6.6 g/dL (5.7-8.2) LFT Test 08/26/24 13:15 Alanine Aminotransferase (ALT) 11 U/L (7-40) Alkaline Phosphatase 72 U/L (46-116) Aspartate Amino Transferase (AST) 18 U/L (13-40) Total Bilirubin 0.6 mg/dL (0.2-1.0) Labs and/or images reviewed: Labs reviewed by me, Image(s) reviewed by me Assessment/Plan Assessment/Plan Acute Hypoxic respiratory failure: Oxygen by nasal cannula Possible community-acquired pneumonia Gram-positive/Gram-negative: Rocephin doxycycline Acute COPD exacerbation Hypertension Hyperlipidemia Diabetes GERD Time spent 70 minutes Advanced care planning time 20 minutes Patient is full code Plan discussed with: Patient Date of Service: Aug 26, 2024 Billing Provider: YOLANDE GUY MD Common Visit Codes: [id number] CARE 30-74 MIN YOLANDE GUY MD Aug 26, 2024 14:21
[2024-08-26] MEDS: cefTRIAXone 1GM/50ML D5W 50 ML IV ONE (15:25)
[2024-08-26] MEDS: DOXYCYCLINE 100MG/100ML 100 ML IV SCH (16:10)
[2024-08-26 16:19] LABS: COVID19 ANTIGEN SOFIA FIA NEGATIVE (NEGATIVE)
[2024-08-27] VITALS (16 sets, daily range): BP systolic 97–146; BP diastolic 62–92; PULSE 71–87; RESP 17–22; TEMP 97.2–97.8; O2SAT 94–100
[2024-08-27] MEDS: hydrOXYzine HCL 10 MG TAB PO ONE (00:04)
[2024-08-27] MEDS: cefTRIAXone 1GM/50ML D5W 50 ML IV SCH (09:20)
[2024-08-27] MEDS: hydrOXYzine HCL 10 MG TAB PO PRN (09:35)
--- NOTE | 2024-08-27 09:59 | DVHPN2 ---
Reviewed: Care Plan, H&P, Labs, Medications, Previous Orders, Radiology Changes from previous H/P or p: No Changes Eyes: No Pain, No Vision change, No Conjunctivae inflammation, No Eyelid inflammation, No Other, No Redness ENT: No Ear pain, No Ear discharge, No Nose pain, No Nose discharge, No Nose congestion, No Mouth pain, No Mouth swelling, No Throat pain, No Throat swelling, No Other Cardiovascular: No Chest Pain, No Palpitations, No Orthopnea, No Paroxysmal Noc. Dyspnea, No Edema, No Lt Headedness, No Other Respiratory: Cough; No Dry; Shortness of breath, SOB with excertion, Wheezing; No Hemoptysis; Pleuritic Pain, Sputum; No Other Gastrointestinal: No Nausea, No Vomiting, No Abdominal Pain, No Diarrhea, No Constipation, No Melena, No Hematochezia, No Other Genitourinary: No Dysuria, No Frequency, No Incontinence, No Hematuria, No Retention, No Other Musculoskeletal: No other, No neck pain, No shoulder pain, No arm pain, No back pain, No hand pain, No leg pain, No foot pain Skin: No Rash, No Lesions, No Jaundice, No Bruising, No Other Objective Vitals Vital Signs Date Time Temp Pulse Resp B/P (MAP) Pulse Ox O2 Delivery O2 Flow Rate FiO2 08/27/24 08:35 97.8 82 18 146/92 (110) 96 97.8 08/27/24 08:11 Room Air 08/27/24 08:11 0 21 Intake/Output Intake and Output 08/27/24 07:00 Intake Total 2570 ml Balance 2570 ml Intake Oral 2320 ml IV Total 250 ml # Voids 18 Medications Current Medications Medications Dose Ordered Sig/Margarita Route Start Time Stop Time Status Last Admin Dose Admin Sodium Chloride 10 ml Q8HR IV 08/25/24 14:00 08/27/24 06:09 10 ML Acetaminophen/ Hydrocodone Bitart 1 tab Q4HP PRN PO 08/25/24 10:45 Ondansetron HCl 4 mg Q4HP PRN IV 08/25/24 10:45 Docusate Sodium 100 mg BIDPRN PRN PO 08/25/24 10:45 Acetaminophen 650 mg Q6HP PRN PO 08/25/24 10:45 Albuterol 2.5 mg Q6HWA NEB 08/25/24 12:00 08/27/24 08:11 2.5 MG Ipratropium [place] 0.5 mg Q6HWA NEB 08/25/24 12:00 08/27/24 08:11 0.5 MG Methylprednisolone Sodium Succinate 40 mg BID IV 08/25/24 22:00 08/26/24 21:42 40 MG Atenolol 25 mg BID PO 08/25/24 22:00 08/26/24 09:33 25 MG EZETIMIBE 10 mg DAILY PO 08/26/24 10:00 08/26/24 09:30 10 MG Hydroxyzine HCl 10 mg TIDP PRN PO 08/25/24 11:00 Isosorbide Mononitrate 60 mg DAILY PO 08/26/24 10:00 08/26/24 09:29 60 MG Pravastatin Sodium 20 mg DAILY PO 08/26/24 10:00 Ranolazine 500 mg BID PO 08/25/24 22:00 08/26/24 21:43 500 MG Ticagrelor 90 mg BID PO 08/25/24 22:00 08/26/24 21:43 90 MG Patient Own Medication 1 tab DAILY PO 08/26/24 10:00 UNV Patient Own Medication 1 tab DAILY PO 08/26/24 10:00 UNV Patient Own Medication 1 cap DAILY PO 08/26/24 10:00 UNV Patient Own Medication 1 tab BID PO 08/25/24 22:00 UNV Patient Own Medication 1 tab HS PO 08/25/24 22:00 UNV Aspirin 81 mg DAILY PO 08/26/24 10:00 08/26/24 09:33 81 MG Losartan Potassium 100 mg DAILY PO 08/26/24 10:00 08/26/24 09:30 100 MG Pantoprazole Sodium 40 mg DAILY PO 08/26/24 10:00 08/26/24 09:32 40 MG Sertraline HCl 25 mg BID PO 08/25/24 22:00 08/26/24 21:43 25 MG Trazodone HCl 100 mg HS PO 08/25/24 22:00 08/26/24 21:42 100 MG Furosemide 20 mg DAILY IV 08/26/24 10:00 08/26/24 09:28 20 MG Albuterol 2.5 mg Q4HPRN PRN NEB 08/25/24 16:00 Ipratropium [place] 0.5 mg Q4HPRN PRN NEB 08/25/24 16:00 Ceftriaxone Sodium 50 ml @ 100 mls/hr DAILY@09 IV 08/27/24 09:00 Doxycycline Hyclate 100 ml @ 50 mls/hr Q12H IV 08/26/24 14:30 08/27/24 02:44 50 MLS/HR Laboratory Results Laboratory Tests 08/26/24 13:15 Chemistry Test 08/26/24 13:15 Albumin 4.4 g/dL (3.2-4.8) Calcium Level 10.6 mg/dL (8.7-10.4) H Total Protein 6.6 g/dL (5.7-8.2) LFT Test 08/26/24 13:15 Alanine Aminotransferase (ALT) 11 U/L (7-40) Alkaline Phosphatase 72 U/L (46-116) Aspartate Amino Transferase (AST) 18 U/L (13-40) Total Bilirubin 0.6 mg/dL (0.2-1.0) Labs and/or images reviewed: Labs reviewed by me, Image(s) reviewed by me Assessment/Plan Assessment/Plan Acute Hypoxic respiratory failure: Oxygen by nasal cannula Possible community-acquired pneumonia Gram-positive/Gram-negative: Rocephin doxycycline Acute COPD exacerbation Hypertension Hyperlipidemia Diabetes GERD Time spent 55 minutes Patient is full code Plan discussed with: Patient My Orders Orders - YOLANDE GUY MD Procedure Category Date Status Time Ceftriaxone 1gm/50ml PHA 08/27/24 In Process D5w (Rocephin) 09:00 Doxycycline PHA 08/26/24 In Process 100mg/100ml 14:30 Date of Service: Aug 27, 2024 Billing Provider: YOLANDE GUY MD Common Visit Codes: [id number] CARE 30-74 MIN YOLANDE GUY MD Aug 27, 2024 09:59
--- NOTE | 2024-08-27 20:10 | DVHINCON2 ---
DATE OF CONSULTATION: 08/27/2024 REFERRING PHYSICIAN: Dr. Addison Simms. CONSULTING PHYSICIAN: Enmanuel Hayes MD INDICATION: Shortness of breath. HISTORY OF PRESENT ILLNESS: The patient is a 64-year-old female with history of coronary artery disease status post angioplasty to RCA and LCX in 2022, history of hypertension, asthma, presented to the hospital with complaints of shortness of breath. She is now admitted with diagnosis of pneumonia. She is currently on IV antibiotics, with improvement in her symptoms. She denies any chest pain. VA has been ruled out with serial negative troponin. PAST MEDICAL HISTORY: * History of CAD, status post angioplasty and stent to RCA and LCX in 2022 at [place]. * Hypertension. * Asthma. * GERD. MEDICATIONS: As per med rec. ALLERGIES: No known drug allergies. PHYSICAL EXAMINATION: GENERAL: Alert and awake, in no form of cardiopulmonary distress. VITAL SIGNS: Blood pressure 140/90, pulse 82, saturation 96%. HEENT: No carotid bruits. No jugular venous distention. CHEST: Bilateral air entry, clear. CARDIOVASCULAR: Submucosal and palpable. Normal S1, S2. Regular rate and rhythm. No appreciable murmurs, gallop or rubs. EXTREMITIES: No peripheral edema. DIAGNOSTIC DATA: White count 19, hemoglobin 11, platelets 313. Sodium 130, potassium 3.8, creatinine 0.8. Troponin is negative. BNP is elevated at 779. ASSESSMENT: * Worsening shortness of breath. * Pneumonia. * History of CAD status post angioplasty. * Hypertension. * GERD. RECOMMENDATIONS: * Continue IV antibiotics. * No indication for IV diuresis. * Monitor input and output closely. * Monitor electrolytes and renal function closely. * Continue aspirin, statin and beta-mann. * Obtain echo. * Continue telemetry monitoring. Thank you for allowing me to partake in the care of this patient. MD MAX Benitez/TERRY/HAYDEN TID: [id number] RECEIPT: [id number]
[2024-08-27] MEDS: guaiFENesin-DM 100/10mg/5ml SYR PO ONE (21:16)
[2024-08-27] MEDS: ALBUTEROL SULF 2.5 MG/0.5ML(0.5%) NEB SOLN NEB PRN (23:50)
[2024-08-27] MEDS: IPRATROPIUM BROM 0.5 MG/2.5ML INH SOL NEB PRN (23:50)
[2024-08-28] VITALS (13 sets, daily range): BP systolic 117–138; BP diastolic 52–92; PULSE 71–94; RESP 16–20; TEMP 96.6–98.6; O2SAT 90–100
--- NOTE | 2024-08-28 10:25 | DVHPN2 ---
Reviewed: Care Plan, H&P, Labs, Medications, Previous Orders, Radiology Changes from previous H/P or p: No Changes Eyes: No Pain, No Vision change, No Conjunctivae inflammation, No Eyelid inflammation, No Other, No Redness ENT: No Ear pain, No Ear discharge, No Nose pain, No Nose discharge, No Nose congestion, No Mouth pain, No Mouth swelling, No Throat pain, No Throat swelling, No Other Cardiovascular: No Chest Pain, No Palpitations, No Orthopnea, No Paroxysmal Noc. Dyspnea, No Edema, No Lt Headedness, No Other Respiratory: Cough; No Dry; Shortness of breath, SOB with excertion, Wheezing; No Hemoptysis; Pleuritic Pain, Sputum; No Other Gastrointestinal: No Nausea, No Vomiting, No Abdominal Pain, No Diarrhea, No Constipation, No Melena, No Hematochezia, No Other Genitourinary: No Dysuria, No Frequency, No Incontinence, No Hematuria, No Retention, No Other Musculoskeletal: No other, No neck pain, No shoulder pain, No arm pain, No back pain, No hand pain, No leg pain, No foot pain Skin: No Rash, No Lesions, No Jaundice, No Bruising, No Other Objective Vitals Vital Signs Date Time Temp Pulse Resp B/P (MAP) Pulse Ox O2 Delivery O2 Flow Rate FiO2 08/28/24 09:00 98.3 76 20 117/88 (98) 97 98.3 08/28/24 07:49 Room Air 08/28/24 07:49 0 21 Intake/Output Intake and Output 08/28/24 07:00 Intake Total 1950 ml Balance 1950 ml Intake Oral 1700 ml IV Total 250 ml # Voids 22 Medications Current Medications Medications Dose Ordered Sig/Margarita Route Start Time Stop Time Status Last Admin Dose Admin Sodium Chloride 10 ml Q8HR IV 08/25/24 14:00 08/28/24 06:04 10 ML Acetaminophen/ Hydrocodone Bitart 1 tab Q4HP PRN PO 08/25/24 10:45 Ondansetron HCl 4 mg Q4HP PRN IV 08/25/24 10:45 Docusate Sodium 100 mg BIDPRN PRN PO 08/25/24 10:45 Acetaminophen 650 mg Q6HP PRN PO 08/25/24 10:45 Albuterol 2.5 mg Q6HWA NEB 08/25/24 12:00 08/28/24 07:48 2.5 MG Ipratropium [place] 0.5 mg Q6HWA NEB 08/25/24 12:00 08/28/24 07:48 0.5 MG Methylprednisolone Sodium Succinate 40 mg BID IV 08/25/24 22:00 08/27/24 21:16 40 MG Atenolol 25 mg BID PO 08/25/24 22:00 08/27/24 09:16 25 MG EZETIMIBE 10 mg DAILY PO 08/26/24 10:00 08/27/24 09:12 10 MG Hydroxyzine HCl 10 mg TIDP PRN PO 08/25/24 11:00 08/27/24 21:17 10 MG Isosorbide Mononitrate 60 mg DAILY PO 08/26/24 10:00 08/27/24 09:13 60 MG Pravastatin Sodium 20 mg DAILY PO 08/26/24 10:00 08/27/24 09:13 20 MG Ranolazine 500 mg BID PO 08/25/24 22:00 08/27/24 21:18 500 MG Ticagrelor 90 mg BID PO 08/25/24 22:00 08/27/24 21:17 90 MG Patient Own Medication 1 tab DAILY PO 08/26/24 10:00 UNV Patient Own Medication 1 tab DAILY PO 08/26/24 10:00 UNV Patient Own Medication 1 cap DAILY PO 08/26/24 10:00 UNV Patient Own Medication 1 tab BID PO 08/25/24 22:00 UNV Patient Own Medication 1 tab HS PO 08/25/24 22:00 UNV Aspirin 81 mg DAILY PO 08/26/24 10:00 08/27/24 09:13 81 MG Losartan Potassium 100 mg DAILY PO 08/26/24 10:00 08/27/24 09:15 100 MG Pantoprazole Sodium 40 mg DAILY PO 08/26/24 10:00 08/27/24 09:12 40 MG Sertraline HCl 25 mg BID PO 08/25/24 22:00 08/27/24 21:17 25 MG Trazodone HCl 100 mg HS PO 08/25/24 22:00 08/27/24 21:17 100 MG Furosemide 20 mg DAILY IV 08/26/24 10:00 08/27/24 09:36 20 MG Albuterol 2.5 mg Q4HPRN PRN NEB 08/25/24 16:00 08/27/24 23:50 2.5 MG Ipratropium [place] 0.5 mg Q4HPRN PRN NEB 08/25/24 16:00 08/27/24 23:50 0.5 MG Ceftriaxone Sodium 50 ml @ 100 mls/hr DAILY@09 IV 08/27/24 09:00 08/27/24 09:20 100 MLS/HR Doxycycline Hyclate 100 ml @ 50 mls/hr Q12H IV 08/26/24 14:30 08/28/24 02:31 50 MLS/HR Laboratory Results Laboratory Tests 08/26/24 13:15 Labs and/or images reviewed: Labs reviewed by me, Image(s) reviewed by me Assessment/Plan Assessment/Plan Acute Hypoxic respiratory failure: Currently on room air, but still complains of wheezing Possible community-acquired pneumonia Gram-positive/Gram-negative: Rocephin doxycycline Acute COPD exacerbation Hypertension Hyperlipidemia Diabetes GERD Time spent 55 minutes Patient is full code Will DC Saturday DEREK Stephen at bedside Plan discussed with: Patient My Orders Orders - YOLANDE GUY MD Procedure Category Date Status Time Complete Blood Count LAB 08/29/24 Verified 04:00 Date of Service: Aug 28, 2024 Billing Provider: YOLANDE GUY MD Common Visit Codes: [id number] INP/OBS CARE(HIGH) YOLANDE GUY MD Aug 28, 2024 10:25
[2024-08-28] MEDS: guaiFENesin-DM 100/10mg/5ml SYR PO PRN (21:16)
[2024-08-29] VITALS (9 sets, daily range): BP systolic 118–124; BP diastolic 73–84; PULSE 60–81; RESP 16–19; TEMP 97.6–98; O2SAT 96–100
[2024-08-29 06:04] LABS: Hematocrit 35.7 % (36.0-46.0); Hemoglobin 12.1 g/dL (12.2-16.2); Mean Corpuscular Hemoglobin 29.8 pg (28.0-32.0); Mean Corpuscular Volume 87.8 fL (80.0-100.0); Nucleated Red Blood Cells % 0.0 %
--- NOTE | 2024-08-29 10:21 | DVHPN2 ---
Reviewed: Care Plan, H&P, Labs, Medications, Previous Orders, Radiology Changes from previous H/P or p: No Changes Eyes: No Pain, No Vision change, No Conjunctivae inflammation, No Eyelid inflammation, No Other, No Redness ENT: No Ear pain, No Ear discharge, No Nose pain, No Nose discharge, No Nose congestion, No Mouth pain, No Mouth swelling, No Throat pain, No Throat swelling, No Other Cardiovascular: No Chest Pain, No Palpitations, No Orthopnea, No Paroxysmal Noc. Dyspnea, No Edema, No Lt Headedness, No Other Respiratory: Cough; No Dry; Shortness of breath, SOB with excertion, Wheezing; No Hemoptysis; Pleuritic Pain, Sputum; No Other Gastrointestinal: No Nausea, No Vomiting, No Abdominal Pain, No Diarrhea, No Constipation, No Melena, No Hematochezia, No Other Genitourinary: No Dysuria, No Frequency, No Incontinence, No Hematuria, No Retention, No Other Musculoskeletal: No other, No neck pain, No shoulder pain, No arm pain, No back pain, No hand pain, No leg pain, No foot pain Skin: No Rash, No Lesions, No Jaundice, No Bruising, No Other Objective Vitals Vital Signs Date Time Temp Pulse Resp B/P (MAP) Pulse Ox O2 Delivery O2 Flow Rate FiO2 08/29/24 09:25 124/84 08/29/24 09:19 71 08/29/24 08:24 97.6 18 97 97.6 08/29/24 06:50 Room Air 0.0 08/29/24 06:50 21 21 Intake/Output Intake and Output 08/29/24 07:00 Intake Total 2009 ml Balance 2009 ml Intake Oral 1760 ml IV Total 250 ml # Voids 13 # Bowel Movements 1 Medications Current Medications Medications Dose Ordered Sig/Margarita Route Start Time Stop Time Status Last Admin Dose Admin Sodium Chloride 10 ml Q8HR IV 08/25/24 14:00 08/29/24 05:36 10 ML Acetaminophen/ Hydrocodone Bitart 1 tab Q4HP PRN PO 08/25/24 10:45 Ondansetron HCl 4 mg Q4HP PRN IV 08/25/24 10:45 Docusate Sodium 100 mg BIDPRN PRN PO 08/25/24 10:45 Acetaminophen 650 mg Q6HP PRN PO 08/25/24 10:45 Albuterol 2.5 mg Q6HWA NEB 08/25/24 12:00 08/29/24 06:50 2.5 MG Ipratropium [place] 0.5 mg Q6HWA NEB 08/25/24 12:00 08/29/24 06:50 0.5 MG Methylprednisolone Sodium Succinate 40 mg BID IV 08/25/24 22:00 08/29/24 09:15 40 MG Atenolol 25 mg BID PO 08/25/24 22:00 08/29/24 09:19 25 MG EZETIMIBE 10 mg DAILY PO 08/26/24 10:00 08/29/24 09:17 10 MG Hydroxyzine HCl 10 mg TIDP PRN PO 08/25/24 11:00 08/29/24 05:33 10 MG Isosorbide Mononitrate 60 mg DAILY PO 08/26/24 10:00 08/29/24 09:18 60 MG Pravastatin Sodium 20 mg DAILY PO 08/26/24 10:00 08/29/24 09:18 20 MG Ranolazine 500 mg BID PO 08/25/24 22:00 08/29/24 09:19 500 MG Ticagrelor 90 mg BID PO 08/25/24 22:00 08/29/24 09:19 90 MG Patient Own Medication 1 tab DAILY PO 08/26/24 10:00 UNV Patient Own Medication 1 tab DAILY PO 08/26/24 10:00 UNV Patient Own Medication 1 cap DAILY PO 08/26/24 10:00 UNV Patient Own Medication 1 tab BID PO 08/25/24 22:00 UNV Patient Own Medication 1 tab HS PO 08/25/24 22:00 UNV Aspirin 81 mg DAILY PO 08/26/24 10:00 08/29/24 09:17 81 MG Losartan Potassium 100 mg DAILY PO 08/26/24 10:00 08/27/24 09:15 100 MG Pantoprazole Sodium 40 mg DAILY PO 08/26/24 10:00 08/29/24 09:19 40 MG Sertraline HCl 25 mg BID PO 08/25/24 22:00 08/29/24 09:18 25 MG Trazodone HCl 100 mg HS PO 08/25/24 22:00 08/28/24 21:16 100 MG Furosemide 20 mg DAILY IV 08/26/24 10:00 08/28/24 10:21 20 MG Albuterol 2.5 mg Q4HPRN PRN NEB 08/25/24 16:00 08/29/24 00:07 2.5 MG Ipratropium [place] 0.5 mg Q4HPRN PRN NEB 08/25/24 16:00 08/29/24 00:07 0.5 MG Ceftriaxone Sodium 50 ml @ 100 mls/hr DAILY@09 IV 08/27/24 09:00 08/29/24 09:17 100 MLS/HR Doxycycline Hyclate 100 ml @ 50 mls/hr Q12H IV 08/26/24 14:30 08/29/24 02:44 50 MLS/HR Guaifenesin/ Dextromethorphan 10 ml Q8HPRN PRN PO 08/28/24 14:15 08/28/24 21:16 10 ML Laboratory Results Laboratory Tests 08/26/24 13:15 08/29/24 04:58 Labs and/or images reviewed: Labs reviewed by me, Image(s) reviewed by me Assessment/Plan Assessment/Plan Acute Hypoxic respiratory failure: Currently on room air, but still complains of wheezing Possible community-acquired pneumonia Gram-positive/Gram-negative: Rocephin doxycycline Acute COPD exacerbation Hypertension Hyperlipidemia Diabetes GERD Time spent 55 minutes Plan discussed with: Patient My Orders Orders - YOLANDE GUY MD Procedure Category Date Status Time Guaifenesin-Dextromet PHA 08/28/24 In Process Liquid (Robitussin 14:15 Date of Service: Aug 29, 2024 Billing Provider: YOLANDE GUY MD Common Visit Codes: [id number] INP/OBS CARE(HIGH) YOLANDE GUY MD Aug 29, 2024 10:21
[2024-08-29] MEDS ORDERED: AZIT500T66 PO (10:23)
[2024-08-29] MEDS ORDERED: PRED20TA2 PO (10:23)
[2024-08-29] MEDS ORDERED: ALBUAER3 IN (10:23)
--- NOTE | 2024-08-29 10:27 | DVHDS2 ---
Discharge Summary Date of Admission Aug 25, 2024 at 10:43 Date of Discharge: Aug 29, 2024 Admitting Diagnosis Shortness of breath Wounds: None Labs/Diagnostic Data: Laboratory Results Test 08/29/24 04:58 08/26/24 15:00 08/26/24 13:15 08/25/24 09:14 White Blood Count 12.9 10^3/uL (4.4-10.8) Red Blood Count 4.06 10^6/uL (4.0-5.20) Hemoglobin 12.1 g/dL (12.2-16.2) Hematocrit 35.7 % (36.0-46.0) Mean Corpuscular Volume 87.8 fL (80.0-100.0) Mean Corpuscular Hemoglobin 29.8 pg (28.0-32.0) Mean Corpuscular Hemoglobin Concent 33.9 g/dL (32.0-36.0) Red Cell Distribution Width 13.8 % (11.8-14.3) Platelet Count 345 10^3/uL (140-450) Mean Platelet Volume 9.0 fL (6.9-10.8) Neutrophils (%) (Auto) 89.9 % (37.0-80.0) Lymphocytes (%) (Auto) 5.7 % (10.0-50.0) Monocytes (%) (Auto) 4.3 % (0.0-12.0) Eosinophils (%) (Auto) 0.0 % (0.0-7.0) Basophils (%) (Auto) 0.1 % (0.0-2.0) Neutrophils # (Auto) 11.6 10 ^3/uL (1.6-8.6) Lymphocytes # (Auto) 0.7 10 ^3/uL (0.4-5.4) Monocytes # (Auto) 0.5 10 ^3/uL (0-1.3) Eosinophils # (Auto) 0 10 ^3/uL (0-0.8) Basophils # (Auto) 0 10 ^3/uL (0-0.2) Nucleated Red Blood Cells 0.0 % Influenza Type A Antigen Negative (Negative) Influenza Type B Antigen Negative (Negative) SARS-CoV-2 Antigen (Rapid) Negative (NEGATIVE) Sodium Level 138 mmol/L (136-145) Potassium Level 3.8 mmol/L (3.5-5.1) Chloride Level 102 mmol/L (98-107) Carbon Dioxide Level 23 mmol/L (20-31) Anion Gap 13 (5-15) Blood Urea Nitrogen 23 mg/dL (9-23) Creatinine 0.87 mg/dL (0.550-1.02) Glomerular Filtration Rate Calc 74 mL/min (>90) BUN/Creatinine Ratio 26.4 (10.0-20.0) Serum Glucose 272 mg/dL (74-106) Calcium Level 10.6 mg/dL (8.7-10.4) Total Bilirubin 0.6 mg/dL (0.2-1.0) Aspartate Amino Transferase (AST) 18 U/L (13-40) Alanine Aminotransferase (ALT) 11 U/L (7-40) Alkaline Phosphatase 72 U/L (46-116) Total Protein 6.6 g/dL (5.7-8.2) Albumin 4.4 g/dL (3.2-4.8) Troponin I High Sensitivity 8 ng/L (</=34) Test 08/25/24 05:54 Hemoglobin A1c 5.7 % A1C (<5.7) B-Type Natriuretic Peptide 779.19 pg/mL (0-100) Other Laboratory Tests 08/29/24 04:58 08/26/24 13:15 Brief Hx & Hospital Course: 64-year-old female with a history of hypertension diabetes hypercholesterolemia COPD came in for shortness of breaths found to have community-acquired pneumonia Gram-positive/Gram-negative treated with Rocephin and doxycycline. Patient has significantly improved and being discharged home. At the time of discharge patient on room air ambulatory vital signs are stable. [facility] Consults/Reason for consult Cardiology Dr. Zapien Operations or Procedures None Condition at Discharge: Fair Final Diagnosis/Problems List Acute Hypoxic respiratory failure: Currently on room air, but still complains of wheezing Possible community-acquired pneumonia Gram-positive/Gram-negative: Rocephin doxycycline Acute COPD exacerbation Hypertension Hyperlipidemia Diabetes GERD Discharge Disposition: Home Discharge Instruct/Medications Diet: Cardiac 2g Na,low cholest Activity: Light activity Follow Up/Referral: Follow up with your primary care Resume all previous home meds Medications: Azithromycin Ventolin MDI Prednisone Transmitted to pharmacy Scheduled Aspirin (Aspirin Low Dose), 1 TAB PO DAILY, (Reported) Atenolol (Atenolol), 1 TAB PO BID, (Reported) Azithromycin (Azithromycin), 1 TAB PO DAILY Ezetimibe (Ezetimibe), 1 TAB PO DAILY, (Reported) Isosorbide Mononitrate (Isosorbide Mononitrate ER), 1 TAB PO DAILY, (Reported) Losartan Potassium (Losartan Potassium), 1 TAB PO DAILY, (Reported) Omeprazole (Omeprazole Dr), 1 CAP PO DAILY, (Reported) Pravastatin Sodium (Pravachol Tablet), 1 TAB PO DAILY, (Reported) Prednisone (Prednisone), 20 MG PO DAILY Ranolazine (Ranolazine ER), 1 TAB PO BID, (Reported) Sertraline Hcl (Sertraline Hcl), 1 TAB PO BID, (Reported) Ticagrelor Base (Brilinta), 1 TAB PO BID, (Reported) Trazodone Hcl (Trazodone Hcl), 1 TAB PO HS, (Reported) Scheduled PRN Albuterol Sulfate (Ventolin Mdi), 90 MCG IN QID PRN Hydroxyzine Hcl (Hydroxyzine Hcl), 1 TAB PO TIDP PRN, (Reported) 39 (Taken for discharge summary 39 minutes) Discharge Statement: "Patient was advised to return to the ER or call 911 if any headaches, dizziness, shortness of breath, chest pain, abdominal pain, bleeding, fevers, or worsening of medical condition. Patient was counseled about treatment plan, medications, possible side effects, patientverbalized understanding. All questions were answered to the best of my ability. This discharge took greater then 30 minutes in planning, reviewing documentation, counseling the patient, and discussing with other team members." ASSESSMENT ASSESSMENT Assessment Acute Hypoxic respiratory failure: Currently on room air, but still complains of wheezing Possible community-acquired pneumonia Gram-positive/Gram-negative: Rocephin doxycycline Acute COPD exacerbation Hypertension Hyperlipidemia Diabetes GERD Date of Service: Aug 29, 2024 Billing Provider: YOLANDE GUY MD Common Visit Codes: [id number] INP/OBS CARE(HIGH) YOLANDE GYU MD Aug 29, 2024 10:26
== END 2024-08-29 12:00 | disposition home or self-care (01) | DRG 140 ==
LOC: ER 05:28 → OVERFLOW 10:43 → EAST 08-26 02:12
PROVIDERS: ADMIT Family Medicine; ATTEND Family Medicine
DX: J44.1 Chronic obstructive pulmonary disease with (acute) exacerbation (principal); J96.21 Acute and chronic respiratory failure with hypoxia; I50.33 Acute on chronic diastolic (congestive) heart failure; J15.69 Pneumonia due to other Gram-negative bacteria; I11.0 Hypertensive heart disease with heart failure; K21.9 Gastro-esophageal reflux disease without esophagitis; E11.65 Type 2 diabetes mellitus with hyperglycemia; E78.00 Pure hypercholesterolemia, unspecified; I25.10 Atherosclerotic heart disease of native coronary artery without angina pectoris; J44.0 Chronic obstructive pulmonary disease with (acute) lower respiratory infection; Z98.61 Coronary angioplasty status; Z88.2 Allergy status to sulfonamides; Z88.8 Allergy status to other drugs, medicaments and biological substances; Z79.899 Other long term (current) drug therapy
CPT/HCPCS: 36415; 71045; 80048; 80053; 83036; 83880; 84484; 85025; 87426; 87804; 93005; 93306; 94640; 96374; 96375; 99291; G0378